=== PATIENT | female | born 1990 | race African-American/Black ===

== ENCOUNTER 2017-08-17 23:22 | Inpatient (IN) | payer OTHER ==
--- NOTE | 2017-08-17 23:25 | PDOC ---
History of Present Illness - General Chief Complaint: Urinary Problem Stated Complaint: UTI Time Seen by Provider: 08/17/17 23:25 History Source: Patient Exam Limitations: No Limitations - History of Present Illness Initial Comments: 08/17/17 23:46 This is a 27-year-old female who comes in complaining of a urinary tract infection. Patient was seen at another facility 2 days ago and diagnosed with a UTI and started on Macrobid. Patient said she has taken his prescribed. Patient also was complaining of some back pain and was prescribed Flexeril and naproxen. Patient now returns complaining of increased back pain vomiting and return of her urinary tract symptoms. Patient said symptoms of been getting worse times the last 12 hours. Patient is noted to have a low-grade fever here in the emergency room. Patient is otherwise healthy and denies any other medical history. Patient denies any history of kidney stones and denies family history of kidney stones PAST MEDICAL HISTORY: no significant history PAST SURGICAL HISTORY: no significant history FAMILY HISTORY: no pertinant history SOCIAL HISTORY: Pt lives with family and is employed. MEDICATIONS: reviewed ALLERGIES: As per nursing notes Review of Systems General: No fevers or chills, no weakness, no weight loss HEENT: No change in vision. No sore throat,. No ear pain CardioVascular: No chest pain or shortness of breath Respiratory:No cough, or wheezing. Gastrointestinal: Pleasant nausea plus vomiting no diarrhea Genitourinary: + Dysuria, hematuria and frequency Musculoskeletal: No joint or muscle pain or swelling Neurologic: No headache, vertigo, dizziness or loss of consciousness Psychiatric: nor depression Skin: No rashes or easy bruising Endocrine: no increased thirst or abnormal weight change Allergic: no skin or latex allergy All other systems reviewed and normal Exam: General: Well-nourished well-developed individual, no acute distress HEENT: Throat: Normal, tonsils normal, no erythema or exudate Neck: Supple, no meningeal signs, no lymphadenopathy Eyes::Pupils equal reactive and round, extraocular motion intact Chest: Nontender to palpation Cardiac: S1-S2 normal, regular rate and rhythm, no murmurs rubs or gallops Respiratory: Lungs clear to auscultation bilateral Abdomen: Soft, nondistended, normal bowel sounds, nontender to palpation diffusely Back: There is no CVA, flank or back pain on palpation Extremities: Warm, dry, no cyanosis, clubbing, or edema Skin: No rashes Neuro: Alert and oriented x3, CN II - XII intact, nonfocal exam with normal strength, normal sensation, normal reflexes, normal gait, Psych: Normal mood and affect 00:20 Patient's white count is 22.9, patient is receiving IV fluids and does feel somewhat better. We'll obtain a CAT scan to rule out any stones or pyelonephritis. 02:30 CAT scan was negative for any acute pathology however given patient's white count I will give her IV antibiotics ceftriaxone and put her at place her in an observation bed patient has remained hemodynamically stable there is been no hypotension her heart rate is now normal. Patient is receiving fluids at about 150 mL an hour. Patient given ceftriaxone and will be admitted to hospitalist bed. Past History - Past Medical History Allergies/Adverse Reactions: Allergies Allergy/AdvReac Type Severity Reaction Status Date / Time No Known Allergies Allergy Unverified 08/17/17 23:24 Home Medications: Ambulatory Orders Cyclobenzaprine HCl [Flexeril -] 10 mg PO TID 08/17/17 Naproxen [Naprosyn] 500 mg PO BID 08/17/17 Nitrofurantoin Macrocrystal [Macrodantin] 100 mg PO BID 08/17/17 ED Treatment Course - LABORATORY CBC & Chemistry Diagram: 08/18/17 00:00 08/17/17 23:55 *DC/Admit/Observation/Transfer Diagnosis at time of Disposition: Cystitis, Pyelonephritis - Discharge Dispostion Condition at time of disposition: Good Decision to Admit order: Yes - Referrals - Patient Instructions - Post Discharge Activity
[2017-08-17] MEDS ORDERED: SODIUM CHLORIDE 1,000 ML IV ONE (23:45)
[2017-08-17] MEDS ORDERED: ONDANSETRON 4 MG/2 ML VIAL IVPB ONE (23:46)
[2017-08-18] MEDS ORDERED: ONDANSETRON 4 MG/2 ML VIAL ONE (00:08)
[2017-08-18 00:22] LABS: HCG,QUALITATIVE URINE NEGATIVE
[2017-08-18 00:23] LABS: URINE APPEARANCE CLEAR; URINE COLOR DKYELLOW
[2017-08-18 00:24] LABS: URINE BILIRUBIN NEGATIVE (<2.0 mg/dL); URINE BLOOD 1+ (NEGATIVE); URINE GLUCOSE (UA) NEGATIVE (NEGATIVE); URINE KETONE NEGATIVE (NEGATIVE); URINE LEUK ESTERASE 1+ (NEGATIVE); URINE NITRITE NEGATIVE (NEGATIVE); URINE PROTEIN 2+ (NEGATIVE); URINE UROBILINOGEN 4.0 E.U/dl mg/dL (0.2-1.0)
[2017-08-18 00:28] LABS: EPI CELLS RARE /HPF (FEW)
[2017-08-18 00:38] LABS: HEMATOCRIT 32.7 % (32.4-45.2); MCH 30.8 pg (25.7-33.7); MCHC 33.7 g/dl (32.0-36.0); MEAN CELL VOLUME 91.4 fl (80-96); MEAN PLT VOLUME 8.3 fl (7.5-11.1); PLATELET COUNT 250 K/MM3 (134-434); RBC 3.58 M/mm3 (3.60-5.2); RDW 12.4 % (11.6-15.6); WHITE BLOOD COUNT 22.9 K/mm3 (4.0-10.0)
[2017-08-18] MEDS ORDERED: FAMOTIDINE IV 20 MG/12 ML VIAL IVPUSH ONE (00:45)
[2017-08-18] MEDS ORDERED: FAMOTIDINE 20 MG/50 ML IVPB 20 MG/50 ML MG IVPB ONE (00:54)
[2017-08-18 01:10] LABS: BLOOD UREA NITROGEN 16 mg/dL (7-18); GLUCOSE,RANDOM 111 mg/dL (74-106)
[2017-08-18 01:11] LABS: ALBUMIN 3.1 g/dl (3.4-5.0); ANION GAP 10 (8-16); BILIRUBIN,TOTAL 3.5 mg/dL (0.2-1.0); CALCIUM 8.3 mg/dL (8.5-10.1); CHLORIDE 101 mmol/L (98-107); CO2 25 mmol/L (21-32); POTASSIUM 3.1 mmol/L (3.5-5.1); SGOT/AST 19 U/L (15-37); SODIUM 136 mmol/L (136-145); TOT PROT 6.5 g/dl (6.4-8.2)
[2017-08-18 01:12] LABS: ALK PHOS 127 U/L (45-117); SGPT/ALT 21 U/L (12-78)
[2017-08-18] MEDS ORDERED: CEFTRIAXONE 1,000 MG in DEXTROSE 5%-WATER - 50 ML IVPB STA (02:14)
[2017-08-18] MEDS ORDERED: cefTRIAXone SODIUM 1 GM VIAL ONE (02:23)
[2017-08-18] MEDS ORDERED: POTASSIUM CHLORIDE TABS 20 MEQ TABLET.ER (FP) PO ONE ×3 (03:02→09:23)
[2017-08-18] MEDS ORDERED: ACETAMINOPHEN 1000 MG/100 ML VIAL (NON FORMULARY) IVPB ONE (03:10)
[2017-08-18] MEDS ORDERED: KETOROLAC TROMETHAMINE 30 MG/1 ML VIAL IVPUSH ONE ×3 (03:10→18:30)
[2017-08-18] MEDS ORDERED: KETOROLAC TROMETHAMINE 30 MG/1 ML VIAL ONE (03:10)
[2017-08-18] MEDS ORDERED: ACETAMINOPHEN INJECTION 100 ML IVPB ONE (03:15)
[2017-08-18] MEDS ORDERED: ACETAMINOPHEN 325 MG TABLET (FP) PO PRN (04:17)
[2017-08-18] MEDS ORDERED: SODIUM CHLORIDE 1,000 ML IV SCH (04:30)
[2017-08-18 05:03] VITALS: BMI 25.1
--- NOTE | 2017-08-18 07:41 | HP ---
CHIEF COMPLAINT: nausea, vomiting, and flank pain PCP: none HISTORY OF PRESENT ILLNESS:patient is a 27-year-old female, with a past medical history of asthma (seasonal) and migraines. Patient reports she was evaluated at [facility] emergency Department, 2 days ago, 08/15/2017 for dysuria and was diagnosed with a urinary tract infection. Patient was started on Macrobid. She reports compliance with Macrobid. However patient reports ongoing malaise, chills, flank pain, nausea and vomiting for the past 24 hours. She was evaluated in this emergency department. 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 [employer] Smoking:none Alcohol:social Drugs: none Family History:father [place] mother alive and well no medical history brother alive and well asthma Allergies No Known Allergies Allergy (Unverified 08/17/17 23:24) HOME MEDICATIONS: Home Medications Medication Instructions Recorded Cyclobenzaprine HCl [Flexeril -] 10 mg PO TID 08/17/17 Naproxen [Naprosyn] 500 mg PO BID 08/17/17 Nitrofurantoin Macrocrystal 100 mg PO BID 08/17/17 [Macrodantin] REVIEW OF SYSTEMS CONSTITUTIONAL: Absent: fever, chills, diaphoresis, generalized weakness, malaise, loss of appetite, weight change HEENT: Absent: rhinorrhea, nasal congestion, throat pain, throat swelling, difficulty swallowing, mouth swelling, ear pain, eye pain, visual changes CARDIOVASCULAR: Absent: chest pain, syncope, palpitations, irregular heart rate, lightheadedness , peripheral edema RESPIRATORY: Absent: cough, shortness of breath, dyspnea with exertion, orthopnea, wheezing, stridor, hemoptysis GASTROINTESTINAL: Absent: abdominal pain, abdominal distension, nausea, vomiting, diarrhea, constipation, melena, hematochezia GENITOURINARY: Absent: dysuria, frequency, urgency, hesitancy, hematuria, flank pain, genital pain MUSCULOSKELETAL: Absent: myalgia, arthralgia, joint swelling, back pain, neck pain SKIN: Absent: rash, itching, pallor HEMATOLOGIC/IMMUNOLOGIC: Absent: easy bleeding, easy bruising, lymphadenopathy, frequent infections ENDOCRINE: Absent: unexplained weight gain, unexplained weight loss, heat intolerance, cold intolerance NEUROLOGIC: Absent: headache, focal weakness or paresthesias, dizziness, unsteady gait, seizure, mental status changes, bladder or bowel incontinence PSYCHIATRIC: Absent: anxiety, depression, suicidal or homicidal ideation, hallucinations. PHYSICAL EXAMINATION Vital Signs - 24 hr 08/17/17 08/18/17 08/18/17 23:27 03:09 03:13 Temperature 100.4 F H 99.2 F Pulse Rate 115 H 105 H Pulse Rate [ Right Radial] Respiratory 15 18 18 Rate Blood Pressure 116/80 122/80 Blood Pressure [Left Arm] O2 Sat by Pulse 95 99 99 Oximetry (%) 08/18/17 08/18/17 03:27 04:03 Temperature 100.4 F H 99.2 F Pulse Rate 105 H Pulse Rate [ 100 H Right Radial] Respiratory 14 18 Rate Blood Pressure 122/80 Blood Pressure 125/84 [Left Arm] O2 Sat by Pulse 99 Oximetry (%) GENERAL: Awake, alert, and fully oriented, in no acute distress. HEAD: Normal with no signs of trauma. EYES: Pupils equal, round and reactive to light, extraocular movements intact, sclera anicteric, conjunctiva clear. No lid lag. EARS, NOSE, THROAT: Ears normal, nares patent, oropharynx clear without exudates. Moist mucous membranes. NECK: Normal range of motion, supple without lymphadenopathy, JVD, or masses. LUNGS: Breath sounds equal, clear to auscultation bilaterally. No wheezes, and no crackles. No accessory muscle use. HEART: Regular rate and rhythm, normal S1 and S2 without murmur, rub or gallop. ABDOMEN: Soft, nontender, not distended, normoactive bowel sounds, no guarding, no rebound, no masses. No hepatomegaly or splenomegaly. MUSCULOSKELETAL: Normal range of motion at all joints. No bony deformities or tenderness. No CVA tenderness. UPPER EXTREMITIES: 2+ pulses, warm, well-perfused. No cyanosis. No clubbing. No peripheral edema. LOWER EXTREMITIES: 2+ pulses, warm, well-perfused. No calf tenderness. No peripheral edema. NEUROLOGICAL: Cranial nerves II-XII intact. Normal speech. Normal gait. PSYCHIATRIC: Cooperative. Good eye contact. Appropriate mood and affect. SKIN: Warm, dry, normal turgor, no rashes or lesions noted, normal capillary refill. Laboratory Results - last 24 hr 08/17/17 08/17/17 08/18/17 23:50 23:55 00:00 WBC Cancelled Corrected WBC (auto) Cancelled RBC Cancelled Hgb Cancelled Hct Cancelled MCV Cancelled MCH Cancelled MCHC Cancelled RDW Cancelled Plt Count Cancelled MPV Cancelled Absolute Neuts (auto) Cancelled Absolute Lymphs (auto) Cancelled Absolute Monos (auto) Cancelled Absolute Eos (auto) Cancelled Absolute Basos (auto) Cancelled Add Manual Diff Cancelled Neutrophils % Cancelled Neutrophils % (Manual) Band Neutrophils % Lymphocytes % Cancelled Lymphocytes % (Manual) Monocytes % Cancelled Monocytes % (Manual) Eosinophils % Cancelled Eosinophils % (Manual) Basophils % Cancelled Basophils % (Manual) Myelocytes % (Man) Promyelocytes % (Man) Blast Cells % (Manual) Nucleated RBC % Cancelled Metamyelocytes Platelet Estimate Cancelled Platelet Comment Cancelled Normal RBC Morphology Cancelled Sodium 136 Potassium 3.1 L Chloride 101 Carbon Dioxide 25 Anion Gap 10 BUN 16 Creatinine 1.0 Creat Clearance w eGFR > 60 Random Glucose 111 H Calcium 8.3 L Total Bilirubin 3.5 H AST 19 ALT 21 Alkaline Phosphatase 127 H Total Protein 6.5 Albumin 3.1 L Urine Color Dkyellow Urine Appearance Clear Urine pH 6.0 Ur Specific Wadley 1.010 Urine Protein 2+ H Urine Glucose (UA) Negative Urine Ketones Negative Urine Blood 1+ H Urine Nitrite Negative Urine Bilirubin Negative Urine Urobilinogen 4.0 e.u/dl H Ur Leukocyte Esterase 1+ H Urine WBC (Auto) 34 Urine RBC (Auto) 22 Ur Epithelial Cells Rare Urine HCG, Qual Negative 08/18/17 00:00 WBC 22.9 H Corrected WBC (auto) RBC 3.58 L Hgb 11.0 Hct 32.7 MCV 91.4 MCH 30.8 MCHC 33.7 RDW 12.4 Plt Count 250 MPV 8.3 Absolute Neuts (auto) Absolute Lymphs (auto) Absolute Monos (auto) Absolute Eos (auto) Absolute Basos (auto) Add Manual Diff Neutrophils % No Result Required. Neutrophils % (Manual) 85.1 H Band Neutrophils % 0.0 Lymphocytes % No Result Required. Lymphocytes % (Manual) 8.5 Monocytes % Monocytes % (Manual) 6 Eosinophils % Eosinophils % (Manual) 0.0 Basophils % Basophils % (Manual) 0.0 Myelocytes % (Man) 0 Promyelocytes % (Man) 0 Blast Cells % (Manual) 0 Nucleated RBC % 0 Metamyelocytes 0 Platelet Estimate Platelet Comment Normal RBC Morphology Sodium Potassium Chloride Carbon Dioxide Anion Gap BUN Creatinine Creat Clearance w eGFR Random Glucose Calcium Total Bilirubin AST ALT Alkaline Phosphatase Total Protein Albumin Urine Color Urine Appearance Urine pH Ur Specific Wadley Urine Protein Urine Glucose (UA) Urine Ketones Urine Blood Urine Nitrite Urine Bilirubin Urine Urobilinogen Ur Leukocyte Esterase Urine WBC (Auto) Urine RBC (Auto) Ur Epithelial Cells Urine HCG, Qual ASSESSMENT/PLAN: 1) ID sepsis - likely secondary to pyelonephritis, continue Rocephin, will upgrade to 2 g IV daily,pending urine and blood cultures - Monitor CBC and fever trend 2) Pyelonephritis - Continue Rocephin 2 g IV daily pending urine and blood cultures - Appreciate urology input 3) neuro migraine - Patient reports a squeezing sensation to had she reports pain is similar to headaches she's had in the past - Will order Toradol, Reglan, and magnesium F/E/N - regular diet - replete electrolytes prn PPX - pepcid - heparin dispo: require inpatient admission secondary to failed outpatient therapy Visit type - Emergency Visit Emergency Visit: Yes ED Registration Date: 08/18/17 Care time: The patient presented to the Emergency Department on the above date and was hospitalized for further evaluation of their emergent condition. - New Patient This patient is new to me today: Yes Date on this admission: 08/18/17 - Critical Care Critical Care patient: No Hospitalist Screening - Colonoscopy Questionnaire Colonoscopy Questionnaire: Colonoscopy Questionnaire - Patient: 50 - 75 years old and never had a screening colonoscopy: No History of colon or rectal polyps, or CA: No History of IBD, Crohn's disease or UC: No History of abdominal radiation therapy as a child: No - Relative: 1 with colon or rectal CA, or polyps at age 60 or younger: No Colon or rectal CA diagnosed at age 45 or younger: No Multiple relatives with colon or rectal CA: No - Outcome: Screening Result: Negative Screen
[2017-08-18 08:28] LABS: ANION GAP 5 (8-16); BLOOD UREA NITROGEN 15 mg/dl (7-18); CALCIUM 7.6 mg/dl (8.4-10.2); CHLORIDE 106 mmol/L (98-107); CO2 24 mmol/L (22-28); GLUCOSE,RANDOM 94 mg/dl (74-106); POTASSIUM 3.3 mmol/L (3.5-5.1); SODIUM 135 mmol/L (136-145)
[2017-08-18 08:31] LABS: BASO % 0.2 % (0-2.0); EOS % 0.5 % (0-4.5); HEMATOCRIT 28.7 % (32.4-45.2); HEMOGLOBIN 9.9 GM/dl (10.7-15.3); LYMPH % 5.6 % (8-40); MCH 32.1 pg (25.7-33.7); MCHC 34.7 g/dl (32.0-36.0); MEAN CELL VOLUME 92.3 fl (80-96); MEAN PLT VOLUME 7.8 fl (7.5-11.1); MONO % 5.1 % (3.8-10.2); NEUT % 88.6 % (42.8-82.8); PLATELET COUNT 240 K/MM3 (134-434); RDW 11.4 % (11.6-15.6)
[2017-08-18] MEDS ORDERED: D5-NS + 20 MEQ KCL - 20 MEQ/1,000 ML INFUS.BAG IV SCH (09:30)
[2017-08-18] MEDS ORDERED: CEFTRIAXONE 2 GM/100 ML BAG IVPB ONE (10:00)
[2017-08-18] MEDS ORDERED: METOCLOPRAMIDE HCL INJECTION 10 MG/2 ML VIAL IVPUSH ONE (10:39)
[2017-08-18] MEDS ORDERED: MAGNESIUM 1GM/D5W 100ML - 100 ML IVPB IVPB ONE (10:45)
--- NOTE | 2017-08-18 13:31 | EKG ---
Test Reason : Blood Pressure : / mmHG Vent. Rate : 090 BPM Atrial Rate : 090 BPM P-R Int : 130 ms QRS Dur : 086 ms QT Int : 332 ms P-R-T Axes : 066 053 016 degrees QTc Int : 406 ms NORMAL SINUS RHYTHM POSSIBLE LEFT ATRIAL ENLARGEMENT BORDERLINE ECG NO PREVIOUS ECGS AVAILABLE Confirmed by PAMELA HEIN, ROSE MARY ([id number]) on 08/18/2017 1:31:09 PM Referred By: CHEKO FINNEGAN Confirmed By:ROSE MARY SANTIAGO MD
[2017-08-18] MEDS ORDERED: ONDANSETRON 4 MG/2 ML VIAL IVPUSH ONE (18:30)
[2017-08-18] MEDS ORDERED: HEPARIN NA (PORCINE) 5,000 UNITS/ML 1ML VIAL SQ SCH (22:00)
[2017-08-18] MEDS ORDERED: ACETAMINOPHEN/CAFFEINE/BUTALBITAL 1 TAB PO ONE (23:15)
[2017-08-19 09:34] LABS: ALBUMIN 2.5 g/dl (3.5-5.0); ALK PHOS 79 U/L (32-92); ANION GAP 5 (8-16); BLOOD UREA NITROGEN 11 mg/dl (7-18); CALCIUM 7.8 mg/dl (8.4-10.2); CHLORIDE 106 mmol/L (98-107); CO2 23 mmol/L (22-28); CREATININE 0.9 mg/dl (0.6-1.3); GLUCOSE,RANDOM 93 mg/dl (74-106); MAGNESIUM 1.9 mg/dL (1.8-2.4); PHOSPHOROUS 1.3 mg/dl (2.5-4.6); POTASSIUM 3.5 mmol/L (3.5-5.1); SGOT/AST 31 U/L (10-42); SGPT/ALT 24 U/L (10-40); SODIUM 134 mmol/L (136-145); TOT PROT 5.3 g/dl (6.4-8.3)
--- NOTE | 2017-08-19 09:51 | PN ---
Physical Exam: SUBJECTIVE: Patient seen and examined. She reports having back pain improved with hot packs, she denies flank pain states pain is "inside". Tolerating select foods, states she is a picky eater, no more vomiting. OBJECTIVE: Vital Signs Period Temp Pulse Resp BP Sys/Louis Pulse Ox Last 24 Hr 98.8 F-100.3 F 87-87 17-18 116-123/77-79 100-100 PE Neuro: alert, awake, cn 2-12 intact Pulm: CTAB CV: s1 s2 rrr no mrg Abd: S nt nd + bs Ext no le edema CBCD WBC 11.4 K/mm3 (4.0-10.8) H D 08/19/17 08:20 RBC 3.11 M/mm3 (3.60-5.2) L 08/19/17 08:20 Hgb 9.6 GM/dl (10.7-15.3) L 08/19/17 08:20 Hct 28.8 % (32.4-45.2) L 08/19/17 08:20 MCV 92.4 fl (80-96) 08/19/17 08:20 MCHC 33.5 g/dl (32.0-36.0) 08/19/17 08:20 RDW 11.8 % (11.6-15.6) 08/19/17 08:20 Plt Count 267 K/MM3 (134-434) 08/19/17 08:20 MPV 8.0 fl (7.5-11.1) 08/19/17 08:20 CMP Sodium 134 mmol/L (136-145) L 08/19/17 08:20 Potassium 3.5 mmol/L (3.5-5.1) 08/19/17 08:20 Chloride 106 mmol/L (98-107) 08/19/17 08:20 Carbon Dioxide 23 mmol/L (22-28) 08/19/17 08:20 Anion Gap 5 (8-16) L 08/19/17 08:20 BUN 11 mg/dl (7-18) D 08/19/17 08:20 Creatinine 0.9 mg/dl (0.6-1.3) 08/19/17 08:20 Creat Clearance w eGFR > 60 (>60) 08/19/17 08:20 Calcium 7.8 mg/dl (8.4-10.2) L 08/19/17 08:20 Total Bilirubin 2.0 mg/dl (0.2-1.0) H 08/19/17 08:20 AST 31 U/L (10-42) 08/19/17 08:20 ALT 24 U/L (10-40) 08/19/17 08:20 Alkaline Phosphatase 79 U/L (32-92) 08/19/17 08:20 Total Protein 5.3 g/dl (6.4-8.3) L 08/19/17 08:20 Albumin 2.5 g/dl (3.5-5.0) L 08/19/17 08:20 Active Medications Generic Name Dose Route Start Last Admin Trade Name Freq PRN Reason Stop Dose Admin Acetaminophen 650 mg 08/18/17 04:17 Tylenol - PO Q6H PRN FEVER Heparin Sodium (Porcine) 5,000 unit 08/19/17 14:00 Heparin - SQ TID [facility] Ceftriaxone Sodium 2 gm/ 100 mls @ 200 mls/hr 08/19/17 10:00 Dextrose IVPB DAILY [facility] Sodium Chloride 1,000 mls @ 83 mls/hr 08/19/17 09:15 Normal Saline - IV ASDIR DANIEL Potassium Phosphate 15 mm/ 255 mls @ 62.5 mls/hr 08/19/17 09:49 Dextrose IVPB 08/19/17 13:53 ONCE ONE Potassium Phos/Sodium Phos 1 packet 08/19/17 10:00 Phos-Nak Packet - PO 08/20/17 09:59 BID [facility] Microbiology 08/17/17 23:50 Urine Culture - Final Urine - Urine Clean Catch 08/18/17 00:00 Blood Culture - Preliminary Blood - Peripheral Venous Lactose Fermenting Neg Bacilli 08/17/17 23:55 Blood Culture - Preliminary Blood - Peripheral Venous Pending Organism Assessment: 27-year-old female, with a past medical history of asthma (seasonal ) and migraines admitted with sepsis, failed outpt tx UTI Plan: 1. Sepsis d/t UTI vs pyelo - Continue ceftriaxone 2gm daily - First set bc organisms pending - Follow repeat blood cultures - ID consulted 2. UTI - As above 3. Migraine - Resolved 4. Hypophosphatemia - Replete 15mm pot phosphate - k phos pkts 1 bid x1 day 5. DVT - Heparin sq Visit type - Emergency Visit Emergency Visit: Yes ED Registration Date: 08/18/17 Care time: The patient presented to the Emergency Department on the above date and was hospitalized for further evaluation of their emergent condition. - New Patient This patient is new to me today: Yes Date on this admission: 08/19/17 - Critical Care Critical Care patient: No
[2017-08-19 09:53] LABS: BASO % 0.5 % (0-2.0); EOS % 1.2 % (0-4.5); HEMATOCRIT 28.8 % (32.4-45.2); HEMOGLOBIN 9.6 GM/dl (10.7-15.3); LYMPH % 8.6 % (8-40); MCHC 33.5 g/dl (32.0-36.0); MEAN CELL VOLUME 92.4 fl (80-96); NEUT % 81.7 % (42.8-82.8); PLATELET COUNT 267 K/MM3 (134-434); RBC 3.11 M/mm3 (3.60-5.2); RDW 11.8 % (11.6-15.6); WHITE BLOOD COUNT 11.4 K/mm3 (4.0-10.8)
[2017-08-19] MEDS ORDERED: POTASSIUM PHOSPHATE 15 MM in DEXTROSE 5%-WATER - 250 ML IVPB ONE (10:00)
[2017-08-19] MEDS ORDERED: CEFTRIAXONE 2 GM in DEXTROSE 5%-WATER - 100 ML IVPB SCH (10:00)
[2017-08-19] MEDS ORDERED: CEFTRIAXONE 1 G/50 ML PREMIX 50 ML IVPB SCH (10:00)
[2017-08-19] MEDS ORDERED: PT OWN MED DRAWER 7, Y5N ONE (10:25)
[2017-08-19] MEDS: NAPH,MB-DB/K PH,MBDB POWDER PACKET PO SCH ×2 (10:45→22:01)
[2017-08-19] MEDS: SODIUM CHLORIDE 1,000 ML IV SCH (10:46)
[2017-08-19] MEDS ORDERED: MAGNESIUM HYDROX 2400MG/30ML ORAL SUSPENSION 30 ML CUP PO ONE (12:08)
[2017-08-19] MEDS ORDERED: oxyCODONE HCL 5 MG TABLET PO PRN (12:09)
[2017-08-19] MEDS: PIPERACILLIN/TAZOB 3.375 GM 3.375 GM/50 ML BAG IVPB SCH ×2 (12:23→18:08)
[2017-08-19] MEDS: DOCUSATE SODIUM 100 MG CAPSULE (FP) PO SCH ×2 (12:23→22:01)
--- NOTE | 2017-08-19 14:17 | PN ---
Progress Note (short form) - Note Progress Note: ID Consult dictated Gram Negative bacteremia/ sepsis secondary to source Acute pyelonephritis Pending c/s empiric zostn
[2017-08-19] MEDS: HEPARIN NA (PORCINE) 5,000 UNITS/ML 1ML VIAL SQ SCH ×2 (14:50→22:01)
--- NOTE | 2017-08-19 15:54 | CONS ---
INFECTIOUS DISEASE CONSULTATION DATE OF CONSULTATION: DATE OF DICTATION: 08/19/2017 The patient is a 27-year-old, healthy female who is evaluated for gram-negative bacteremia. The patient was admitted to the hospital on August 18, 2017, with a several day history of worsening low back pain, nausea, and vomiting. She had presented to [facility] Emergency Room on August 15, 2017, with similar complaint. She was diagnosed with a urinary tract infection and prescribed Macrobid. Despite the antibiotic, she developed worsening bilateral low back pain, nausea, and vomiting. She denied any dysuria, frequency, or urgency. In the emergency room, she was febrile with a markedly elevated white blood cell count. CAT scan of the abdomen and pelvis showed cystitis with dilated left renal pelvis. Cultures were obtained. She was empirically treated with ceftriaxone. 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 PAST MEDICAL HISTORY: Positive for asthma and migraines. ALLERGIES: No known drug allergies. MEDICATIONS: Include Flexeril, Naprosyn, Macrobid. SOCIAL HISTORY: Resides at home in the community. Non-smoker. Nondrinker. SYSTEMS REVIEW: Neurologic: No loss of consciousness, seizure activity, focal weakness. Cardiac: Negative chest pain or palpitations. Respiratory: Negative for cough or sputum production. Gastrointestinal: Positive for nausea and vomiting. No diarrhea. Genitourinary: As per HPI. LABORATORY DATA: White blood cell count on admission 22,000, hematocrit 28.7, platelet count 240. BUN 11, creatinine 0.9. Urinalysis: white cells 34. PHYSICAL EXAMINATION: General: She is awake and alert. She is not acutely toxic appearing. Vital Signs: Temperature 99.6, T-max 100.4; blood pressure 123/79, pulse 87, regular; respirations 18 per minute. HEENT: Sclerae anicteric. Heart: Sounds S1, S2. Lungs: Clear. Abdomen: Soft. No tenderness elicited. Positive bilateral flank tenderness and bilateral low back tenderness. Extremities: Negative for edema. IMPRESSION: 1. Gram-negative bacteremia/sepsis secondary to genitourinary source. 2. Acute pyelonephritis. 3. Leukocytosis. Pending identification of blood isolate, empiric antibiotic coverage with Zosyn 3.375 g IV piggyback every 8 hours, IV fluid hydration. Further recommendations pending cultures. Will follow. Thank you for the kind referral. VINICIO ANDREWS M.D. [id number]
[2017-08-19] MEDS ORDERED: ONDANSETRON 4 MG/2 ML VIAL IVPUSH ONE (21:30)
[2017-08-20] MEDS: PIPERACILLIN/TAZOB 3.375 GM 3.375 GM/50 ML BAG IVPB SCH ×2 (01:12→10:00)
[2017-08-20] MEDS: HEPARIN NA (PORCINE) 5,000 UNITS/ML 1ML VIAL SQ SCH ×3 (07:20→21:26)
[2017-08-20 08:13] LABS: BASO % 0.5 % (0-2.0); EOS % 1.9 % (0-4.5); HEMATOCRIT 28.1 % (32.4-45.2); HEMOGLOBIN 9.5 GM/dl (10.7-15.3); LYMPH % 14.9 % (8-40); MCH 31.6 pg (25.7-33.7); MCHC 33.8 g/dl (32.0-36.0); MEAN CELL VOLUME 93.6 fl (80-96); MEAN PLT VOLUME 7.5 fl (7.5-11.1); MONO % 11.8 % (3.8-10.2); NEUT % 70.9 % (42.8-82.8); PLATELET COUNT 276 K/MM3 (134-434); RBC 3.01 M/mm3 (3.60-5.2); RDW 11.8 % (11.6-15.6); WHITE BLOOD COUNT 10.9 K/mm3 (4.0-10.8)
--- NOTE | 2017-08-20 08:36 | PN ---
Progress Note, Physician History of Present Illness: C/O R low back pain, dry heaves No c/o dysuria/ hematuria/ frequency/ urgency No c/o fever/ chills Constipated Temps down afebrile WBC improved BC LF - Current Medication List Current Medications: Active Medications Acetaminophen (Tylenol -) 650 mg PO Q6H PRN PRN Reason: FEVER Docusate Sodium (Colace -) 100 mg PO BID [facility] Last Admin: 08/19/17 22:01 Dose: 100 mg Heparin Sodium (Porcine) (Heparin -) 5,000 unit SQ TID [facility] Last Admin: 08/20/17 07:20 Dose: 5,000 unit Sodium Chloride (Normal Saline -) 1,000 mls @ 83 mls/hr IV ASDIR [facility] Last Admin: 08/19/17 10:46 Dose: 83 mls/hr Piperacillin Sod/Tazobactam Sod (Zosyn 3.375gm Ivpb (Pre-Docked)) 3.375 gm in 50 mls @ 100 mls/hr IVPB Q8H-IV DANIEL; Protocol Last Admin: 08/20/17 01:12 Dose: 100 mls/hr Oxycodone HCl (Roxicodone -) 5 mg PO Q4H PRN PRN Reason: PAIN LEVEL 1-5 Last Admin: 08/19/17 14:51 Dose: 5 mg Potassium Phos/Sodium Phos (Phos-Nak Packet -) 1 packet PO BID [facility] Stop: 08/20/17 09:59 Last Admin: 08/19/17 22:01 Dose: 1 packet - Objective Vital Signs: Vital Signs Temperature 99.4 F 08/20/17 06:00 Pulse Rate 74 08/20/17 06:00 Respiratory Rate 18 08/20/17 06:00 Blood Pressure 128/83 08/20/17 06:00 O2 Sat by Pulse Oximetry (%) 99 08/20/17 06:00 Constitutional: Yes: No Distress Cardiovascular: Yes: Regular Rate and Rhythm, S1, S2 Respiratory: Yes: CTA Bilaterally Gastrointestinal: Yes: Normal Bowel Sounds, Soft, Other (no suprapubic tenderness). No: Tenderness Genitourinary: Yes: CVA Tenderness - Left, CVA Tenderness - Right Edema: No Labs: CBC, BMP 08/20/17 07:45 06/01/18 08:20 Assessment/Plan Gram Negative bacteremia/ sepsis secondary to Pyelonephritis Fever/ leukocytosis- improved Await identification of blood isolate Continue zosyn pending c/s
--- NOTE | 2017-08-20 09:38 | PN ---
Physical Exam: SUBJECTIVE: Patient seen and examined at the bedside. Dry heaving overnight and constipation OBJECTIVE: Vital Sign Period Temp Pulse Resp BP Sys/Louis Pulse Ox Last 24 Hr 99.4 F-99.4 F 74-86 16-18 124-141/75-83 99-100 GENERAL: The patient is awake, alert, and fully oriented, in no acute distress. HEAD: Normal with no signs of trauma. EYES: PERRL, extraocular movements intact, sclera anicteric, conjunctiva clear. No ptosis. ENT: Ears normal, nares patent, oropharynx clear without exudates, moist mucous membranes. NECK: Trachea midline, full range of motion, supple. LUNGS: Breath sounds equal, clear to auscultation bilaterally, no wheezes, no crackles, no accessory muscle use. HEART: Regular rate and rhythm, S1, S2 without murmur, rub or gallop. ABDOMEN: Soft, nontender, nondistended, normoactive bowel sounds, no guarding, no rebound, no hepatosplenomegaly, no masses. EXTREMITIES: 2+ pulses, warm, well-perfused, no edema. NEUROLOGICAL: Normal speech, gait not observed. PSYCH: Normal mood, normal affect. SKIN: Warm, dry, normal turgor, no rashes or lesions noted Laboratory Results - last 24 hr 08/19/17 08/19/17 08/20/17 08:20 08:20 07:45 WBC 11.4 H D 10.9 H RBC 3.11 L 3.01 L Hgb 9.6 L 9.5 L Hct 28.8 L 28.1 L MCV 92.4 93.6 MCH 31.0 31.6 MCHC 33.5 33.8 RDW 11.8 11.8 Plt Count 267 276 MPV 8.0 7.5 Neutrophils % 81.7 70.9 Lymphocytes % 8.6 14.9 Monocytes % 8.0 11.8 H Eosinophils % 1.2 1.9 Basophils % 0.5 0.5 Sodium 134 L Potassium 3.5 Chloride 106 Carbon Dioxide 23 Anion Gap 5 L BUN 11 D Creatinine 0.9 Creat Clearance w eGFR > 60 Random Glucose 93 Calcium 7.8 L Phosphorus 1.3 L Magnesium 1.9 Total Bilirubin 2.0 H AST 31 ALT 24 Alkaline Phosphatase 79 Total Protein 5.3 L Albumin 2.5 L 08/20/17 07:45 WBC RBC Hgb Hct MCV MCH MCHC RDW Plt Count MPV Neutrophils % Lymphocytes % Monocytes % Eosinophils % Basophils % Sodium Potassium Chloride Carbon Dioxide Anion Gap BUN Creatinine Creat Clearance w eGFR Random Glucose Calcium Phosphorus 2.5 D Magnesium Total Bilirubin AST ALT Alkaline Phosphatase Total Protein Albumin Active Medications Generic Name Dose Route Start Last Admin Trade Name Freq PRN Reason Stop Dose Admin Acetaminophen 650 mg 08/18/17 04:17 Tylenol - PO Q6H PRN FEVER Docusate Sodium 100 mg 08/19/17 12:15 08/19/17 22:01 Colace - PO 100 mg BID DANIEL Administration Heparin Sodium (Porcine) 5,000 unit 08/19/17 14:00 08/20/17 07:20 Heparin - SQ 5,000 unit TID DANIEL Administration Sodium Chloride 1,000 mls @ 83 mls/hr 08/19/17 09:15 08/19/17 10:46 Normal Saline - IV 83 mls/hr ASDIR DANIEL Administration Piperacillin Sod/Tazobactam Sod 3.375 gm in 50 mls @ 100 mls/hr 08/19/17 12: 00 08/20/17 01:12 Zosyn 3.375gm Ivpb (Pre-Docked) IVPB 100 mls/hr Q8H-IV DANIEL Administration Protocol Oxycodone HCl 5 mg 08/19/17 12:09 08/19/17 14:51 Roxicodone - PO 5 mg Q4H PRN Administration PAIN LEVEL 1-5 Potassium Phos/Sodium Phos 1 packet 08/19/17 10:00 08/19/17 22:01 Phos-Nak Packet - PO 08/20/17 09:59 1 packet BID DANIEL Administration ASSESSMENT/PLAN: Patient is a 27-year-old female, with a past medical history of asthma (seasonal ) and migraines. Patient reports she was evaluated at [facility] emergency Department for dysuria and was diagnosed with a urinary tract infection. Patient was started on Macrobid. She reports compliance with Macrobid. However patient reports ongoing malaise, chills, flank pain, nausea and vomiting for the past 24 hours. She was evaluated in this emergency department and now is being treated with Zosyn. ID: Sepsis Cystitis/Pyelonephritis On Zosyn (08/19> ) IV hydration Monitor intake and output Pain management Monitor vitals/labs Repeat cultures pending F.E.N. Fluids: NS 83cc/hr Electrolytes: low phos levels repleted Nutrition: regular diet DVT: heparin GI: deferred full code Visit type - Emergency Visit Emergency Visit: Yes ED Registration Date: 08/18/17 Care time: The patient presented to the Emergency Department on the above date and was hospitalized for further evaluation of their emergent condition. - New Patient This patient is new to me today: Yes Date on this admission: 08/20/17 - Critical Care Critical Care patient: No - Discharge Referral Referred to [facility] Med P.C.: No
[2017-08-20] MEDS ORDERED: POLYETHYLENE GLYCOL 3350 119 GM BTL PO ONE (09:39)
[2017-08-20] MEDS: PANTOPRAZOLE 40 MG TABLET (FP) PO SCH (10:00)
[2017-08-20] MEDS: DOCUSATE SODIUM 100 MG CAPSULE (FP) PO SCH ×2 (10:00→21:26)
[2017-08-20] MEDS: SODIUM CHLORIDE 1,000 ML IV SCH (10:05)
[2017-08-21] MEDS: PIPERACILLIN/TAZOB 3.375 GM 3.375 GM/50 ML BAG IVPB SCH ×2 (01:11→10:08)
[2017-08-21] MEDS: HEPARIN NA (PORCINE) 5,000 UNITS/ML 1ML VIAL SQ SCH (05:57)
[2017-08-21 06:19] VITALS: BP 134/80; PULSE 63; TEMP 98.2
--- NOTE | 2017-08-21 09:04 | PN ---
Physical Exam: SUBJECTIVE: Patient seen and examined, pt reports feeling better, flank pain resolved, denies fever, chills, abdominal pain, N/V/D, dysuria. OBJECTIVE: Vital Signs Period Temp Pulse Resp BP Sys/Louis Pulse Ox Last 24 Hr 98.2 F-98.5 F 63-83 16-18 113-134/64-80 96-99 GENERAL: The patient is awake, alert, and fully oriented, in no acute distress, OOB HEAD: Normal with no signs of trauma. EYES: PERRL, extraocular movements intact, sclera anicteric, conjunctiva clear. No ptosis. ENT: Ears normal, nares patent, oropharynx clear without exudates, moist mucous membranes. NECK: Trachea midline, full range of motion, supple. LUNGS: Breath sounds equal, clear to auscultation bilaterally, no wheezes, no crackles, no accessory muscle use. HEART: Regular rate and rhythm, S1, S2 without murmur, rub or gallop. ABDOMEN: Soft, non-tender, non-distended, normoactive bowel sounds, no guarding , no rebound, no hepatosplenomegaly, no masses. EXTREMITIES: 2+ pulses, warm, well-perfused, no edema. NEUROLOGICAL: Cranial nerves II through XII grossly intact. Normal speech, gait not observed. PSYCH: Normal mood, normal affect. SKIN: Warm, dry, normal turgor, no rashes or lesions noted - Active Medications Generic Name Dose Route Start Last Admin Trade Name Freq PRN Reason Stop Dose Admin Acetaminophen 650 mg 08/18/17 04:17 Tylenol - PO Q6H PRN FEVER Docusate Sodium 100 mg 08/19/17 12:15 08/20/17 21:26 Colace - PO 100 mg BID DANIEL Administration Heparin Sodium (Porcine) 5,000 unit 08/19/17 14:00 08/21/17 05:57 Heparin - SQ 5,000 unit TID DANIEL Administration Sodium Chloride 1,000 mls @ 83 mls/hr 08/19/17 09:15 08/20/17 10:05 Normal Saline - IV 83 mls/hr ASDIR DANIEL Administration Piperacillin Sod/Tazobactam Sod 3.375 gm in 50 mls @ 100 mls/hr 08/19/17 12: 00 08/21/17 01:11 Zosyn 3.375gm Ivpb (Pre-Docked) IVPB 100 mls/hr Q8H-IV DANIEL Administration Protocol Oxycodone HCl 5 mg 08/19/17 12:09 08/19/17 14:51 Roxicodone - PO 5 mg Q4H PRN Administration PAIN LEVEL 1-5 Pantoprazole Sodium 40 mg 08/20/17 10:00 08/20/17 10:00 Protonix - PO 40 mg DAILY DANIEL Administration CT scan abdomen and pelvis without contrast, enlarged liver measuring 20 cm, mild dilation of the left renal pelvis, No gross evidence of hydroureteronephrosis, renal or ureter stone bilaterally, diffuse wall thickening of the urinary bladder wall likely due to nondistention cannot rule out cystitis Microbiology 08/17/17 23:55 Blood Culture - Final Blood - Peripheral Venous Escherichia Coli 08/18/17 14:24 Blood Culture - Preliminary Blood - Peripheral Venous NO GROWTH OBTAINED AFTER 48 HOURS, INCUBATION TO CONTINUE FOR 3 DAYS. 08/18/17 14:24 Blood Culture - Preliminary Blood - Peripheral Venous NO GROWTH OBTAINED AFTER 48 HOURS, INCUBATION TO CONTINUE FOR 3 DAYS. 08/18/17 00:00 Blood Culture - Final Blood - Peripheral Venous Escherichia Coli ASSESSMENT/PLAN: Patient is a 27-year-old female, with a past medical history of asthma (seasonal ) and migraines, admitted with Cystitis/Pyelonephritis, out pt tx failure on Macrobid. *ID: Sepsis Cystitis/Pyelonephritis -gram Negative bacteremia On Zosyn (08/19> ) s/p IV hydration PO mateusz well afebrile, WBC trending down will f/u on culture reports * Hx of asthma - stable *Anemia likely due to menorrhagia -asymptomatic F.E.N. Electrolytes: low phos levels replacement - resolved Nutrition: regular diet DVT: heparin GI: deferred full code Visit type - Emergency Visit Emergency Visit: Yes ED Registration Date: 08/18/17 Care time: The patient presented to the Emergency Department on the above date and was hospitalized for further evaluation of their emergent condition. - New Patient This patient is new to me today: Yes Date on this admission: 08/21/17 - Critical Care Critical Care patient: No
[2017-08-21] MEDS: PANTOPRAZOLE 40 MG TABLET (FP) PO SCH (10:08)
[2017-08-21] MEDS: DOCUSATE SODIUM 100 MG CAPSULE (FP) PO SCH (10:08)
--- NOTE | 2017-08-21 11:10 | PN ---
Progress Note, Physician History of Present Illness: Doing well Reports back pain resolved No c/o dysuria/frequency/urgency No c/o fever/ chills No N/V + B Temps down afebrile WBC improved BC E coli (s) levaquin - Current Medication List Current Medications: Active Medications Acetaminophen (Tylenol -) 650 mg PO Q6H PRN PRN Reason: FEVER Docusate Sodium (Colace -) 100 mg PO BID [facility] Last Admin: 08/21/17 10:08 Dose: 100 mg Heparin Sodium (Porcine) (Heparin -) 5,000 unit SQ TID DANIEL Last Admin: 08/21/17 05:57 Dose: 5,000 unit Piperacillin Sod/Tazobactam Sod (Zosyn 3.375gm Ivpb (Pre-Docked)) 3.375 gm in 50 mls @ 100 mls/hr IVPB Q8H-IV DANIEL; Protocol Last Admin: 08/21/17 10:08 Dose: 100 mls/hr Oxycodone HCl (Roxicodone -) 5 mg PO Q4H PRN PRN Reason: PAIN LEVEL 1-5 Last Admin: 08/19/17 14:51 Dose: 5 mg Pantoprazole Sodium (Protonix -) 40 mg PO DAILY [facility] Last Admin: 08/21/17 10:08 Dose: 40 mg - Objective Vital Signs: Vital Signs Temperature 98.2 F 08/21/17 06:00 Pulse Rate 63 08/21/17 06:00 Respiratory Rate 18 08/21/17 09:01 Blood Pressure 134/80 08/21/17 06:00 O2 Sat by Pulse Oximetry (%) 99 08/21/17 09:01 Constitutional: Yes: No Distress Eyes: Yes: Conjunctiva Clear Cardiovascular: Yes: Regular Rate and Rhythm, S1, S2 Respiratory: Yes: CTA Bilaterally Gastrointestinal: Yes: Normal Bowel Sounds, Soft, Abdomen, Obese. No: Tenderness Genitourinary: No: CVA Tenderness - Left, CVA Tenderness - Right Labs: CBC, BMP 08/20/17 07:45 08/19/17 08:20 Assessment/Plan E. coli bacteremia/ sepsis secondary to Pyelonephritis Fever/ leukocytosis- improved May substitute levaquin 750mg po qd x10d
--- NOTE | 2017-08-21 14:42 | DS ---
Physical Exam: SUBJECTIVE: Patient seen and examined OBJECTIVE: Vital Signs Period Temp Pulse Resp BP Sys/Louis Pulse Ox Last 24 Hr 98.2 F-98.5 F 63-70 16-18 119-134/73-80 96-99 PHYSICAL EXAM GENERAL: The patient is awake, alert, and fully oriented, in no acute distress. HEAD: Normal with no signs of trauma. EYES: PERRL, extraocular movements intact, sclera anicteric, conjunctiva clear. ENT: Ears normal, nares patent, oropharynx clear without exudates, moist mucous membranes. NECK: Trachea midline, full range of motion, supple. LUNGS: Breath sounds equal, clear to auscultation bilaterally, no wheezes, no crackles, no accessory muscle use. HEART: Regular rate and rhythm, S1, S2 without murmur, rub or gallop. ABDOMEN: Soft, nontender, nondistended, normoactive bowel sounds, no guarding, no rebound, no hepatosplenomegaly, no masses. EXTREMITIES: 2+ pulses, warm, well-perfused, no edema. NEUROLOGICAL: Cranial nerves II through XII grossly intact. Normal speech, gait not observed. PSYCH: Normal mood, normal affect. SKIN: Warm, dry, normal turgor, no rashes or lesions noted. CT scan abdomen and pelvis without contrast, enlarged liver measuring 20 cm, mild dilation of the left renal pelvis, No gross evidence of hydroureteronephrosis, renal or ureter stone bilaterally, diffuse wall thickening of the urinary bladder wall likely due to non-distention cannot rule out cystitis LABS Microbiology 08/18/17 14:24 Blood - Peripheral Venous Blood Culture - Preliminary NO GROWTH OBTAINED AFTER 72 HOURS, INCUBATION TO CONTINUE FOR 2 DAYS. 08/18/17 14:24 Blood - Peripheral Venous Blood Culture - Preliminary NO GROWTH OBTAINED AFTER 72 HOURS, INCUBATION TO CONTINUE FOR 2 DAYS. 08/20/17 13:44 Blood - Peripheral Venous Blood Culture - Preliminary NO GROWTH OBTAINED AFTER 24 HOURS, INCUBATION TO CONTINUE FOR 4 DAYS. 08/20/17 13:45 Blood - Peripheral Venous Blood Culture - Preliminary NO GROWTH OBTAINED AFTER 24 HOURS, INCUBATION TO CONTINUE FOR 4 DAYS. 08/17/17 23:55 Blood - Peripheral Venous Blood Culture - Final Escherichia Coli 08/18/17 00:00 Blood - Peripheral Venous Blood Culture - Final Escherichia Coli 08/17/17 23:50 Urine - Urine Clean Catch Urine Culture - Final HOSPITAL COURSE: Date of Admission:08/18/17 Date of Discharge: 08/21/17 Patient is a 27-year-old female, with a past medical history of asthma (seasonal ) and migraines, admitted with Cystitis/Pyelonephritis, out pt tx failure on Macrobid. Pt was evaluated by ID received Zosyn with improvement, blood culture revealed gram negative bacteremia,remains afebrile, WBC improved from 22.9>10.9 , remains clinically stable. ID cleared for discharge on Levaquin 750mg daily for 10 more days to complete the course. Pt tolerating oral well. * Hx of asthma - stable *Anemia likely due to menorrhagia,asymptomatic Minutes to complete discharge: 40 Discharge Summary Reason For Visit: CYSTITIS/PYELONEPHRITIS Condition: Good - Instructions Diet, Activity, Other Instructions: Regular diet Disposition: HOME - Home Medications Comprehensive Discharge Medication List: Ambulatory Orders Acetaminophen [Tylenol .Regular Strength -] 650 mg PO Q6H PRN tablet 08/21/17 L. Acidophilus/Dig Enz Cmb 5 [Probiotic-Digestive Enzymes] 1 each PO DAILY #10 capsule 08/21/17 levoFLOXacin [Levaquin] 750 mg PO DAILY #10 tab 08/21/17 This patient is new to me today: Yes Date on this admission: 08/21/17 Emergency Visit: Yes ED Registration Date: 08/18/17 Care time: The patient presented to the Emergency Department on the above date and was hospitalized for further evaluation of their emergent condition. Critical Care patient: No - Discharge Referral Referred to [facility] Med P.C.: No
== END 2017-08-21 12:10 | disposition home or self-care (01) | DRG 872 ==
LOC: FER 23:22 → FM/S 08-18 02:40 → UNDOADMOB 08-18 03:13 → OBSVTOIN 08-18 14:33
PROVIDERS: ADMIT Internal Medicine; ATTEND Nurse Practitioner Family
DX: A41.51 Sepsis due to Escherichia coli [E. coli] (principal); N10 Acute pyelonephritis; E83.39 Other disorders of phosphorus metabolism; D72.829 Elevated white blood cell count, unspecified; D64.9 Anemia, unspecified; N92.0 Excessive and frequent menstruation with regular cycle; G43.909 Migraine, unspecified, not intractable, without status migrainosus
CPT/HCPCS: 36415; 74176-TC; 80048; 80053; 81003; 81015; 83735; 84100; 84703; 85025; 87040; 87086; 87186; 93005; 99285-25; G0378; J0131; J1644; J7030